=== PATIENT | female | born 2005 | race Two or more races ===

== ENCOUNTER → 2024-10-08 | Outpatient (CLI) | payer BC, SELFPAY ==
[2024-10-08 15:36] LABS: Basophils # (Auto) 0.0 Thou/mm3 (0.0-0.2); Basophils % (Auto) 0 % (0-2.5); Eosinophils # (Auto) 0.2 Thou/mm3 (0.0-0.5); Eosinophils % (Auto) 3 % (0-10); Hematocrit 37.4 % (36.0-46.0); Hemoglobin 12.6 g/dL (12.0-16.0); Immature Granulocytes Auto 0.01 Thou/mm3 (0.00-0.00); Lymphocytes # (Auto) 1.4 Thou/mm3 (1.0-4.8); Lymphocytes % (Auto) 25 % (10-50); Mean Corpuscular HGB Conc 33.7 g/dl (31.0-37.0); Mean Corpuscular Hemoglobin 27.7 pg (25.0-35.0); Mean Corpuscular Volume 82 fL (80-100); Monocytes # (Auto) 0.4 Thou/mm3 (0.0-0.8); Monocytes % (Auto) 6 % (0-12); Neutrophils # (Auto) 3.6 Thou/mm3 (1.8-7.7); Neutrophils % (Auto) 65 % (37-80); Nucleated Red Blood Cell # 0.00 Thou/mm3 (0.00-0.00); Nucleated Red Blood Cell % 0 /100 WBC (0); Platelet Count 279 Thou/mm3 (140-440); RDW Standard Deviation 37.8 fL (36.4-46.3); Red Blood Count 4.55 Miln/mm3 (4.00-5.20); White Blood Count 5.5 Thou/mm3 (4.5-11.0)
[2024-10-08 15:48] LABS: Alanine Aminotransferase 14 U/L (10-49); Albumin, Serum 5.0 gm/dL (3.5-5.0); Albumin/Globulin Ratio 1.5 (1.2-2.2); Alkaline Phosphatase 42 U/L (46-116); Anion Gap 8 (7-16); Aspartate Amino Transferase 20 U/L (0-34); BUN/Creatinine Ratio 14 Ratio (12-20); Bilirubin,Total 1.1 mg/dL (0.3-1.2); Blood Urea Nitrogen 11 mg/dL (9-23); Calcium 9.8 mg/dL (8.3-10.6); Calcium (Corrected) 9.8 mg/dL (8.5-10.1); Carbon Dioxide 27.4 mMol/L (20.0-31.0); Chloride 104 mMol/L (98-107); Creatinine (Component) 0.8 mg/dL (0.6-1.3); Free T3 3.4 pg/mL (3.0-4.7); Free T4 (Free Thyroxine) 1.26 ng/dL (0.89-1.76); Globulin 3.3 gm/dL (2.3-3.5); Glucose 87 mg/dL (74-106); Osmolality,Calculated 275 (275-295); Potassium 4.8 mMol/L (3.4-5.1); Sodium 139 mMol/L (136-145); Thyroid Stimulating Hormone 2.00 uIU/mL (0.55-4.78); Total Protein 8.3 gm/dL (5.7-8.2); eGFR > 60 See Note
[2024-10-08 15:50] LABS: Folate 13.66 ng/mL (>5.38); Vitamin B12 435 pg/mL (211-911); Vitamin D 25 Hydroxy Total 22.9 ng/mL (7.3-40.2)
== END | disposition home or self-care (01) ==
LOC: COPL 14:22
PROVIDERS: PCP Family Medicine; Referring Provider Family Medicine; Visit Provider Family Medicine
DX: E55.9 Vitamin D deficiency, unspecified (principal); R53.81 Other malaise; K29.70 Gastritis, unspecified, without bleeding; Z13.220 Encounter for screening for lipoid disorders
CPT/HCPCS: 36415; 80053; 80061; 82306; 82607; 82746; 83013; 83014; 84439; 84443; 84481; 85025

== ENCOUNTER → 2024-10-11 | Outpatient (CLI) | payer BC, SELFPAY ==
[2024-10-11 14:20] LABS: Urea Breath Test Negative (Negative)
[2024-10-11 14:27] LABS: Cardiac Risk Estimate 2.9 RATIO (3.7-5.6); Cholesterol 144 mg/dL (132-200); HDL Cholesterol 49 mg/dL (40-60); LDL Cholesterol,Calculated 72 mg/dL (0-130); Triglycerides 113 mg/dL (30-150)
== END | disposition home or self-care (01) ==
PROVIDERS: PCP Family Medicine; Referring Provider Family Medicine; Visit Provider Family Medicine
DX: K29.70 Gastritis, unspecified, without bleeding (principal); Z13.220 Encounter for screening for lipoid disorders
CPT/HCPCS: 36415; 80061; 83013; 83014